=== PATIENT | female | born 1945 | race Caucasian/White ===

== ENCOUNTER 2020-12-23 12:28 | Outpatient (CLI) | payer BC, MEDICARE ==
--- NOTE | 2020-12-23 15:07 | XRAY Report ---
PROCEDURE: Hand 3 View RT INDICATIONS: PAIN IN RIGHT HAND TECHNIQUE: 3 views of the hand(s) acquired. COMPARISON: None FINDINGS: Bones: There is prior internal fixation of distal radius and radial styloid with surgical hardware in place. Acute appearing comminuted fracture involving third metacarpal shaft is seen with minimal med ial displacement at fracture site. No other fracture or dislocation is seen. Diffuse osteopenia is no harry. No suspicious bony lesions. Soft tissues: No suspicious soft tissue calcifications. IMPRESSION: Acute appearing comminuted and minimally displaced third metacarpal shaft fracture. Prior fixation of distal radius. No gross hardware loosening or failure. Reviewed by: Facundo Corea MD on 12/23/2020 3:06 PM PDT Approved by: Facundo Corea MD on 12/23/2020 3:06 PM PDT Station ID: [id number]
[2020-12-23 15:24] LABS: ALBUMIN 4.5 g/dL (3.2-5.5); ALBUMIN/GLOBULIN RATIO 1.6 (1.0-2.2); ALKALINE PHOSPHATASE 87 IU/L (42-121); ALT ALANINE AMINOTRANSFERASE 16 IU/L (10-60); AST ASPARTATE AMINOTRANSFERASE 20 IU/L (10-42); BILIRUBIN,TOTAL 0.8 mg/dL (0.2-1.0); BUN - BLOOD UREA NITROGEN 21 mg/dL (6-20); CALCIUM 9.4 mg/dL (8.5-10.3); CARBON DIOXIDE - CO2 26 mmol/L (21-32); CHLORIDE 98 mmol/L (101-111); CHOL/HDL RATIO 2.6 (<4.4); CHOLESTEROL 200 mg/dL; CREATININE 0.8 mg/dL (0.4-1.0); GFR - MDRD 70 (>89); GLUCOSE 92 mg/dL (70-100); HDL CHOLESTEROL 77 mg/dL; LDL CHOLESTEROL,CALCULATED 106 mg/dL; LDL/HDL RATIO 1.4 (<4.4); POTASSIUM 4.1 mmol/L (3.5-5.0); SODIUM 136 mmol/L (135-145); TOTAL PROTEIN 7.4 g/dL (6.7-8.2); TRIGLYCERIDES 86 mg/dL; VLDL CHOLESTEROL 17 mg/dL
== END 2020-12-23 12:29 | disposition home or self-care (01) ==
LOC: DI.S 12:28 → EDBD 12:28 → DI.S 12:29
PROVIDERS: ATTEND Physician Assistant
DX: S62.322A Displaced fracture of shaft of third metacarpal bone, right hand, initial encounter for closed fracture (principal); M19.90 Unspecified osteoarthritis, unspecified site; Z13.220 Encounter for screening for lipoid disorders; S52.501D Unspecified fracture of the lower end of right radius, subsequent encounter for closed fracture with routine healing
CPT/HCPCS: 36415; 80053; 80061; 83721

== ENCOUNTER 2021-12-21 08:00 | Outpatient (CLI) | payer MEDICARE, BC ==
--- NOTE | 2021-12-21 11:45 | XRAY Report ---
PROCEDURE: Femur 2V LT INDICATIONS: LEFT LEG PAIN TECHNIQUE: 2 views of the femur were acquired. COMPARISON: None. FINDINGS: Bones: No acute fracture or dislocation. Left hip arthroplasty with expected radiographic appearance. Soft tissues: No suspicious soft tissue calcifications or masses. IMPRESSION: No acute radiographic abnormality. Left hip arthroplasty in place. Reviewed by: Sanjay Padilla MD on 12/21/2021 11:44 AM PDT Approved by: Sanjay Padilla MD on 12/21/2021 11:44 AM PDT Station ID: [id number]
--- NOTE | 2021-12-21 11:47 | XRAY Report ---
PROCEDURE: Hip w/Pelvis 1V LT INDICATIONS: LEFT LEG PAIN TECHNIQUE: AP pelvis with lateral view(s) of the left hip(s). COMPARISON: None. FINDINGS: Bones: No acute fracture or pelvic ring obstruction. Bilateral hip arthroplasties speculated radiogra phic appearance. Soft tissues: The visualized bowel gas pattern is normal. No suspicious soft tissue calcifications. IMPRESSION: No acute radiographic abnormality. Bilateral hip arthroplasties. Reviewed by: Sanjay Padilla MD on 12/21/2021 11:45 AM PDT Approved by: Sanjay Padilla MD on 12/21/2021 11:45 AM PDT Station ID: [id number]
== END 2021-12-21 23:59 | disposition home or self-care (01) ==
LOC: DI.S 08:00
PROVIDERS: ATTEND Physician Assistant
DX: M79.605 Pain in left leg (principal); Z96.643 Presence of artificial hip joint, bilateral